=== PATIENT | female | born 1995 | race Caucasian/White ===

== ENCOUNTER 2018-05-16 11:28 | Emergency (ER) | payer OTHER ==
[~2018-05-16] VITALS: Ht 175.3 cm; Wt 71.6 kg
[2018-05-16] MEDS ORDERED: MORPHINE SULFATE 4 MG/ML, 1ML IVPush PRN (12:00)
[2018-05-16] MEDS ORDERED: SODIUM CHLORIDE FLUSH 10ML SYR IVF ONE (12:00)
[2018-05-16] MEDS ORDERED: FAMOTIDINE 20 MG/2 ML IVP ONE (12:00)
[2018-05-16] MEDS ORDERED: FAMOTIDINE 20 MG/2 ML ONE (12:08)
[2018-05-16] MEDS ORDERED: MORPHINE SULFATE 4 MG/ML, 1ML ONE (12:08)
[2018-05-16 12:24] LABS: BASOPHILS # (AUTO) 0.17 x10^3/uL (0-0.1); BASOPHILS % (AUTO) 2 % (0-1); EOSINOPHILS % (AUTO) 0 % (1-7); LYMPHOCYTES # (AUTO) 0.53 x10^3/uL (1-3.4); LYMPHOCYTES % (AUTO) 5 % (22-44); MD NO; MEAN CORPUSCULAR HEMOGLOBIN 32.5 pg (27.0-34.8); MEAN CORPUSCULAR HGB CONC 34.5 g/dL (32.4-35.8); MEAN PLATELET VOLUME 8.1 fL (7.4-10.4); MONOCYTES # (AUTO) 0.34 x10^3/uL (0.2-0.8); MONOCYTES % (AUTO) 3 % (2-9); NEUTROPHILS % (AUTO) 90 % (42-75); PLATELET COUNT 251 x10^3/uL (130-400); RED BLOOD COUNT 4.66 x10^6/uL (3.82-5.3); RED CELL DISTRIBUTION WIDTH 12.2 % (9.6-15.2)
[2018-05-16 12:34] LABS: CHLORIDE 113 mmol/L (98-107)
[2018-05-16 12:44] LABS: ALANINE AMINOTRANSFERASE 26 U/L (12-78); ALBUMIN 4.2 g/dL (3.4-5.0); ALKALINE PHOSPHATASE 71 U/L (45-117); ANION GAP 7 mmol/L (5-15); CALCIUM 8.8 mg/dL (8.5-10.1); CREATININE 0.79 mg/dL (0.55-1.02); TOTAL PROTEIN 7.9 g/dL (6.4-8.2)
[2018-05-16 13:20] VITALS: BP 120/77
[2018-05-16] MEDS ORDERED: ONDANSETRON ODT 4 MG ONE (13:25)
[2018-05-16] MEDS ORDERED: ONDANSETRON ODT 4 MG PO ONE (13:30)
[2018-05-16] MEDS ORDERED: SODIUM CHLORIDE FLUSH 0.9%, 20 ML IVF SCH (13:30)
[2018-05-16 14:49] LABS: MICROSCOPIC AUTO
[2018-05-16 14:54] LABS: CULTURE INDICATED? YES
== END 2018-05-16 15:34 | disposition home or self-care (01) ==
LOC: ED 15:28
DX: R10.12 Left upper quadrant pain (principal); N30.01 Acute cystitis with hematuria; R19.7 Diarrhea, unspecified
CPT/HCPCS: 36415; 74021; 76700; 80053; 81001; 83690; 84703; 85025; 87086; 87147; 96374; 96375; 99285; Q0162; S0028